=== PATIENT | male | born 1985 | race Two or more races ===

== ENCOUNTER 2016-06-08 12:17 | Emergency (ER) | payer MEDICARE, MEDICAID ==
[~2016-06-08] VITALS: Ht 175.3 cm; Wt 66.7 kg
[2016-06-08 12:18] VITALS: BP 113/98
== END 2016-06-08 13:42 | disposition home or self-care (01) ==
LOC: ER 12:17
DX: S09.90XA Unspecified injury of head, initial encounter (principal); W22.8XXA Striking against or struck by other objects, initial encounter; Y93.89 Activity, other specified; Y99.8 Other external cause status; Y92.89 Other specified places as the place of occurrence of the external cause
CPT/HCPCS: 70450